=== PATIENT | female | born 1980 | race Caucasian/White ===

== ENCOUNTER 2017-12-07 13:37 | Day surgery (SDC) | payer OTHER, SELFPAY ==
[2017-12-05 08:49] VITALS: BMI 33.5
[2017-12-07] VITALS (10 sets, daily range): BP systolic 115–131; BP diastolic 76–87; PULSE 60–77; RESP 9–18; TEMP 36.1–37.2; O2SAT 99–100; BMI 34.7
--- NOTE | 2017-12-07 | PATH_ITS ---
[facility] Accession Number: [id number] . 01 Material submitted: . PART A: ENDOMETRIAL POLYP PART B: ENDOMETRIAL CURRETINGS . 02 Diagnosis: A. Endometrial Polyp, Biopsy: Portions of endometrial polyp with disordered proliferative endometrium; negative for glandular hyperplasia, cytologic atypia, and malignancy. . B. Endometrial Curettings: Portions of dys-synchronous and disordered proliferative endometrium with patchy regions of breakdown; negative for glandular hyperplasia, cytologic atypia, and malignancy. Occasional tissue fragments demonstrate prominent vessels, suggestive of polyp, if clinical and imaging findings are concordant. Detached portion of squamous mucosa; negative for squamous dysplasia and malignancy. [facility]/12/11/2017 . 02 Electronically signed: . Fatuma oCrnell MD, Pathologist NPI- [id number] . 01 Gross description: . A. The specimen is received in a container of formalin, labeled with the patient's name, designated endometrial polyp. The specimen is received on a Telfa pad. The specimen consists of multiple 0.3 cm to 2 x 1.1 x 04 cm, soft and focally firm, cohen pieces of fragmented tissue. The larger piece is bisected. Entirely submitted in cassettes A1, A2, and A3 (cassettes A2 and A3 - bisected polyp). B. The specimen is received in a container of formalin, labeled with the patient's name, designated endometrial curettings. The specimen is received on Telfa pads. The specimen consists of approximately 2 grams of soft, red-cohen, hemorrhagic fragments of tissue, blood clot, and blood-tinged mucus. Entirely submitted in cassettes B1 and B2. ([id number]) /FRR . 02 Pathologist provided ICD-10: N84.1 . 02 CPT . 952212, [id number] Performed at: 01 [facility] [address] [place] [address], [place], [place] [id number] MD Carlos Serrato MD Phone: [phone] Performed at: [facility] [address] [address] [place], [place] [id number] MD Monty Reed MD Phone: [phone]
[2017-12-07] MEDS: MIDAZOLAM 2 MG/2 ML VIAL IV (15:44)
[2017-12-07] MEDS: LACTATED RINGERS 1,000 ML 42 ML IV ×2 (15:52→17:29)
--- NOTE | 2017-12-07 15:56 | SUR.PREOP ---
Pt medicated slowly with Versed, O2 monitor placed, sats 99-100%RA.
[2017-12-07] MEDS: CEFOTETAN 2 GM/50 ML PIGGYBACK IV (16:37)
--- NOTE | 2017-12-07 16:58 | SUR.OPER ---
Lithotomy on padded OR bed, head on gel donut on foam block, arms secured on padded arm boards at <90 degrees abduction. Legs secured in padded yellow fins stirrups.
--- NOTE | 2017-12-07 17:11 | PM.GYNOP.1 ---
Operative Date/Time/Diagnoses - Date of procedure: 12/07/17 Time of procedure: 17:12 Pre-op diagnosis: Endometrial polyp Post-op diagnosis: same Procedure: Procedures Operation Date: 12/07/17 15:00 Actual Procedures Side Surgeon p Hysteroscopy D&C, Polypectomy Mumtaz Price MD Surgeon: Mumtaz Price Anesthesia Type: General Operative Notes Closure Type: not applicable Specimen(s): endometrial curettings and endometrial polyp Estimated blood loss (mL): 25 Procedure in detail: The patient was placed supine upon the operating table and anesthetized. She was then placed in the dorsal lithotomy position and examined under anesthesia. Patient had a axial uterus of normal size and there were no adnexal masses. The patient was then draped and prepared in the usual fashion. The anterior lip of the cervix grasped with a toothed tenaculum the uterine cavity sounded 8 cm. Uterine cervix was dilated to Hegar 11. Hysteroscope was placed in the was a large endometrial polyp extending from the anterior uterine wall. The Luis A stone polyp forceps were introduced and the polyp was removed. A curettage was then performed without difficulty and all the specimens were sent for pathologic examination. The end of procedure there was minimal bleeding. The tenaculum was removed posterior weighted retractor was removed and the patient was taken to the recovery room in satisfactory condition. Complications: none Post-operative Plan for aftercare: Office Dr. Talavera two weeks
[2017-12-07] MEDS: ONDANSETRON 4 MG/2 ML INJ IV (17:20)
[2017-12-07] MEDS: fentaNYL 100 MCG/2 ML INJ 50 MCG IV ×4 (17:33→17:49)
[2017-12-07] MEDS: MEPERIDINE 50 MG TABLET PO (18:02)
== END 2017-12-07 18:25 | disposition home or self-care (01) ==
PROC: 0UDB8ZZ Extraction of Endometrium, Via Natural or Artificial Opening Endoscopic (ICD-10-PCS; CPT 58558; principal; 2017-12-07 15:00)
DX: N92.1 Excessive and frequent menstruation with irregular cycle (principal); N84.0 Polyp of corpus uteri
CPT/HCPCS: 58558; J1100; J1885; J2250; J2405; J2704; J3010